=== PATIENT | female | born 1955 | race Caucasian/White ===

== ENCOUNTER 2019-06-21 10:48 | Emergency (ER) | payer MEDICARE, MEDICAID ==
[2019-06-21 11:19] LABS: ABS Basophils 0.1 10^3/ul (0-0.2); ABS Eosinophils 0.1 10^3/ul (0-0.6); ABS Lymphocytes 1.5 10^3/ul (1.0-4.8); ABS Monocytes 0.4 10^3/ul (0-0.8); ABS Neutrophils 3.3 10^3/ul (1.5-7.7); Eosinophil % 1.8 %; Hematocrit 43 % (35-47); Hemoglobin 14.9 g/dL (12.0-16.0); Lymphocyte % 27.6 %; Mean Corpuscular HGB Conc 35 g/dL (31-36); Mean Corpuscular Hemoglobin 32 pg (27-31); Mean Corpuscular Volume 91 fL (80-97); Mean Platelet Volume 7.3 fL (7.4-10.4); Nucleated Red Blood Cells % 0.1; Platelet Count 237 10^3/uL (150-450); Red Blood Count 4.72 10^6 /uL (3.70-4.87); Red Cell Distribution Width 13 % (10-15); White Blood Count 5.3 10^3/uL (3.5-10.8)
--- NOTE | 2019-06-21 11:19 | ED ---
Shortness of Breath - HPI Summary HPI Summary: This patient is a 64 year old F presenting to ED with a chief complaint of intermittent SOB since a few weeks ago. Patient has recently also developed lightheadedness and wheeziness. This morning, patient was petting the dog, stood up, and felt lightheaded for a few seconds. Patient has been a smoker for the past 50 years. She denies being diagnosed with COPD or any heart conditions. She has not been sick with a cold recently. She does not have a history of DVT or PE. Patient reports mild nausea and mild headache. She has had indigestion recently. The patient rates the pain 0/10 in severity. Symptoms aggravated by exertion. Symptoms alleviated by nothing. - History of Current Complaint Chief Complaint: EDShortnessOfBreath Time Seen by Provider: 06/21/19 11:07 Hx Obtained From: Patient Onset/Duration: Gradual Onset, Lasting Weeks, Still Present, Worse Since Timing: Intermittent Episodes Lasting: Current Severity: Mild Dyspnea At: Exertion Aggravating Factors: Other - Exertion Alleviating Factors: Nothing - Allergy/Home Medications Allergies/Adverse Reactions: Allergies Allergy/AdvReac Type Severity Reaction Status Date / Time steroids Allergy Headache Uncoded 06/21/19 10:55 Home Medications: Home Medications Acetylcysteine [Nac] 500 mg PO DAILY 06/21/19 [History Confirmed 06/21/19] Ascorbic Acid TAB* [Vitamin C TAB*] 500 mg PO DAILY 06/21/19 [History Confirmed 06/21/19] Cholecalciferol TAB* [Vitamin D TAB*] 1,000 unit PO DAILY 06/21/19 [History Confirmed 06/21/19] Cyanocobalamin TAB* [Vitamin B12 TAB*] 500 mcg PO DAILY 06/21/19 [History Confirmed 06/21/19] Marianna [Marianna Brock] 500 mg PO DAILY 06/21/19 [History Confirmed 06/21/19] Turmeric 400 mg PO DAILY 06/21/19 [History Confirmed 06/21/19] Ubidecarenone [Coq-10] 30 mg PO DAILY 06/21/19 [History Confirmed 06/21/19] PMH/Surg Hx/FS Hx/Imm Hx Cardiovascular History: Denies: Hx Deep Vein Thrombosis, Hx Embolism, Hx Hypercholesterolemia, Hx Hypertension Respiratory History: Denies: Hx Chronic Obstructive Pulmonary Disease (COPD) - Surgical History Surgery Procedure, Year, and Place: hip replacements Infectious Disease History: No Infectious Disease History: Denies: Hx Clostridium Difficile, Hx Hepatitis, Hx Human Immunodeficiency Virus (HIV), Hx of Known/Suspected MRSA, Hx Shingles, Hx Tuberculosis, Traveled Outside the [place] in Last 30 Days - Family History Known Family History: Negative: Cardiac Disease, Hypertension, Diabetes - Social History Alcohol Use: Rare Hx Substance Use: No Substance Use Type: Reports: None Hx Tobacco Use: Yes Smoking Status (MU): Current Every Day Smoker Amount Used/How Often: 1/2 ppd Review of Systems Positive: Shortness Of Breath Positive: Nausea Neurological: Other - Lightheadedness Positive: Headache All Other Systems Reviewed And Are Negative: Yes Physical Exam - Summary Physical Exam Summary: Constitutional: Well-developed, Well-nourished, Alert. (-) Distressed Skin: Warm, Dry HENT: Normocephalic; Atraumatic Eyes: Conjunctiva normal Neck: Musculoskeletal ROM normal neck. (-) JVD, (-) Stridor, (-) Tracheal deviation Cardio: Rhythm regular, rate normal, Heart sounds normal; Intact distal pulses; The pedal pulses are 2+ and symmetric. Radial pulses are 2+ and symmetric. (-) Murmur Pulmonary/Chest wall: Effort normal. (-) Respiratory distress, (-) Wheezes, (-) Rales Abd: Soft, (-) tenderness, (-) Distension, (-) Guarding, (-) Rebound Musculoskeletal: (-) Edema Lymph: (-) Cervical adenopathy Neuro: Alert, Oriented x3 Psych: Mood and affect Normal Triage Information Reviewed: Yes Vital Signs On Initial Exam: Initial Vitals Temp Pulse Resp BP Pulse Ox 97.4 F 76 19 147/89 100 06/21/19 10:52 06/21/19 10:52 06/21/19 10:52 06/21/19 10:52 06/21/19 10:52 Vital Signs Reviewed: Yes Procedures - Sedation Patient Received Moderate/Deep Sedation with Procedure: No Diagnostics - Vital Signs Vital Signs Temp Pulse Resp BP Pulse Ox 06/21/19 10:52 97.4 F 76 19 147/89 100 - Laboratory Result Diagrams: 06/21/19 11:07 06/21/19 11:07 Lab Statement: Any lab studies that have been ordered have been reviewed, and results considered in the medical decision making process. - Radiology CXR Radiology Interpretation Completed By: Radiologist Summary of Radiographic Findings: NO ACTIVE CARDIOPULMONARY DISEASE IS NOTED. Dr. Rankin has reviewed this radiology report. - EKG 1056 Cardiac Rate: NL - 67 BPM EKG Rhythm: Sinus Rhythm ST Segment: Normal Summary of EKG Findings: An EKG at 1056 revealed NSR at 64 BPM, no STEMI, otherwise normal. Dr. Rankin has reviewed and interpreted this EKG. Re-Evaluation - Re-Evaluation First Eval Re-Evaluation Time: 14:43 Comment: Discussed results with patient. Patient will be admitted to [facility] [place] with dx of dyspnea. Patient understands and agrees with this plan. Course/Dx - Course Course Of Treatment: This patient is a 64 year old F presenting to ED with a chief complaint of intermittent SOB since a few weeks ago. An EKG at 1056 revealed NSR at 64 BPM, no STEMI, otherwise normal. Blood work revealed MCH 32, MPV 7.3, BUN/creatinine ratio 26.3. First troponin 0.0. NO ACTIVE CARDIOPULMONARY DISEASE IS NOTED. D-dimer negative. Second troponin 0.0. Discussed results with patient. Patient will be admitted to [facility] [place] with dx of dyspnea. Patient understands and agrees with this plan. - Diagnoses Provider Diagnoses: Dyspnea Discharge ED - Sign-Out/Discharge Documenting (check all that apply): Patient Departure - Discharge - Discharge Plan Condition: Stable Disposition: HOME Patient Education Materials: Chest Pain (ED), Dyspnea (ED) Referrals: Jennifer Pedersen [Primary Care Provider] - 3 Days Additional Instructions: Please follow-up with your primary care physician in 2-3 days. PLEASE RETURN TO THE ER FOR WORSENING OR CHANGING SYMPTOMS. It was a pleasure taking care of you today. - Billing Disposition and Condition Condition: STABLE Disposition: Home - Attestation Statements Document Initiated by Scribe: Yes Documenting Scribe: Mati Morrison Provider For Whom Destinee is Documenting (Include Credential): Chava Rankin DO Scribdominique Attestation: Mati Santos scribed for Chava Rankin DO on 06/21/19 at 1833. Scribe Documentation Reviewed: Yes Provider Attestation: The documentation as recorded by the Mati carmichael accurately reflects the service I personally performed and the decisions made by me, Chava Rankin DO Status of Scribe Document: Viewed
[2019-06-21 11:38] LABS: Albumin 4.6 g/dL (3.2-5.2); Albumin/Globulin Ratio 1.8 (1-3); BUN/Creatinine Ratio 26.3 (8-20); EGFR African American 129.2 (>60); EGFR Non-African American 106.8 (>60); Globulin 2.6 g/dL (2-4); Total Bilirubin 0.7 mg/dL (0.2-1.0); Total Protein 7.2 g/dL (6.4-8.9)
[2019-06-21 15:02] VITALS: BP 135/76
== END 2019-06-21 15:01 | disposition home or self-care (01) ==
LOC: ED 10:48
DX: R06.00 Dyspnea, unspecified (principal); R11.0 Nausea; R51 Headache; R42 Dizziness and giddiness; Z96.649 Presence of unspecified artificial hip joint; Z88.8 Allergy status to other drugs, medicaments and biological substances; F17.200 Nicotine dependence, unspecified, uncomplicated
CPT/HCPCS: 36415; 71045; 80053; 83605; 84484; 85025; 85379; 87040; 93005; 99283